=== PATIENT | male | born 1965 | race Two or more races ===

== ENCOUNTER 2021-04-02 06:57 | Day surgery (SDC) | payer OTHER | END 2021-04-02 12:15 | disposition home or self-care (01) | LOC: CIR.AMB 06:57 | PROVIDERS: ATTEND Orthopaedic Surgery | DX: M75.121 Complete rotator cuff tear or rupture of right shoulder, not specified as traumatic (principal); Z20.822 Contact with and (suspected) exposure to COVID-19 ==